=== PATIENT | male | born 1965 | race Hispanic/Latino ===

== ENCOUNTER 2017-07-24 13:22 | Outpatient (CLI) | payer MEDICAID ==
--- NOTE | 2017-07-24 18:21 | XRay Report ---
FINAL REPORT EXAM: XR KNEE BILAT 4+V HISTORY: BILATERAL KNEE PAIN TECHNIQUE: AP, sunrise, oblique, and lateral standing views of both knees PRIORS: None. FINDINGS: No acute fracture or dislocation is seen. There is a small suprapatellar joint effusion on the right. There is no evidence for left-sided suprapatellar joint effusion. The bony mineralization is normal. There is mild narrowing of the left medial and right lateral joint compartments. There is also mild narrowing of the lateral aspect of each patellofemoral joint. IMPRESSION: No acute bony abnormality in the knees. Small joint effusion on the right. 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
== END 2017-07-24 13:23 | disposition home or self-care (01) ==
LOC: SPVIMAG 13:22
PROVIDERS: ATTEND Orthopaedic Surgery Sports Medicine
DX: M17.0 Bilateral primary osteoarthritis of knee (principal)

== ENCOUNTER 2017-09-04 08:29 | Outpatient (CLI) | payer MEDICAID ==
--- NOTE | 2017-09-04 08:55 | XRay Report ---
Bilateral shoulders: Pain. Routine views obtained of both left and right shoulder joints. Positioning of the left shoulder is not optimal making evaluation of shoulder joint space difficult. The articular margins appear smooth and the joint is aligned. The sub-acromial space is preserved. The bones are well-mineralized. Images of the right shoulder joint are unremarkable. Impression: Suboptimal evaluation of left shoulder joint space. The findings bilaterally are otherwise unremarkable.
== END 2017-09-04 08:30 | disposition home or self-care (01) ==
LOC: SPVIMAG 08:29
PROVIDERS: ATTEND Orthopaedic Surgery Sports Medicine
DX: M25.511 Pain in right shoulder (principal); M25.512 Pain in left shoulder